=== PATIENT | male | born 1975 | race African-American/Black ===

== ENCOUNTER 2023-08-13 11:49 | Emergency (ER) | payer OTHER, SELFPAY ==
--- NOTE | ~2023-08-13 | XR_ITS ---
EXAMINATION: XR chest 2V DATE: 08/13/2023 12:42 INDICATION: Chest pain. TECHNIQUE: Frontal and lateral views of the chest were obtained. COMPARISON: None. FINDINGS: There is no pneumonia, pleural effusion, or pneumothorax. The heart size is normal. IMPRESSION: 1. No acute cardiopulmonary disease. Reviewed, dictated and finalized at location A.
[2023-08-13 11:55] VITALS: BP 149/117; PULSE 92; RESP 13; TEMP 36.7; O2SAT 100
--- NOTE | 2023-08-13 11:59 | ECG_ITS ---
Measurements Intervals [place] Rate: 86 P: 24 ND: 175 QRS: -12 QRSD: 92 T: -28 QT: 347 Avg RR: 693 QTc: 390 QTcB: 416 QTcF: 392 Interpretive Statements SINUS RHYTHM NONSPECIFIC T-WAVE ABNORMALITY BORDERLINE ECG SEE SCANNED COPY FOR SIGNATURE MTDD
[2023-08-13 12:13] VITALS: BP 164/110; PULSE 86; RESP 18; O2SAT 99
[2023-08-13 12:18] LABS: Basophils Percent Auto 0.5 % (0.2-1.2); Eosinophils Absolute Auto 0.1 K/mm3 (0-0.3); Hematocrit 39.9 % (42.0-52.0); Hemoglobin 13.7 g/dL (14.0-18.0); Immature Granulocyte Absolute 0.02 K/mm3 (0.00-0.031); Immature Granulocyte Percent A 0.3 % (0-0.5); Lymphocytes Absolute Auto 2.92 K/mm3 (0.9-3.2); Lymphocytes Percent Auto 47.9 % (18.3-44.2); Mean Corpuscular HGB Conc 34.3 g/dl (32-36); Mean Corpuscular Hemoglobin 30.4 pg (26-34); Mean Corpuscular Volume 88.7 fl (80-100); Monocytes Absolute Auto 0.5 K/mm3 (0.1-0.6); Neutrophils Absolute Auto 2.5 K/mm3 (1.3-6.7); Neutrophils Percent Auto 41.3 % (45.5-73.1); Platelet Count Result 232 k/mm3 (150-375); Red Cell Distribution Width 12.8 % (11.5-14.5); White Blood Count 6.1 K/mm3 (4.5-10.0)
[2023-08-13] MEDS: ASPIRIN 81 MG CHEWABLE TABLET 324 MG PO (12:20)
[2023-08-13 12:27] LABS: INR 0.9; Prothrombin Time 12.5 Seconds (11.1-14.7)
[2023-08-13 12:29] LABS: Partial Thromboplastin Time 26.3 Seconds (22.3-36.8)
[2023-08-13 12:31] LABS: Alanine Aminotransferase 20 U/L (6-50); Albumin Level 4.7 g/dL (3.5-5.1); Alkaline Phosphatase 94 U/L (38-126); Anion Gap 5 mmol/L (4-12); Aspartate Amino Transferase 26 U/L (17-59); Bilirubin,Total 0.6 mg/dL (0.2-1.3); Blood Urea Nitrogen 16 mg/dL (9-20); Calcium 9.8 mg/dL (8.4-10.2); Carbon Dioxide 24 mmol/L (22-30); Chloride 108 mmol/L (98-107); Estimated CRCL calculation 116 ml/min; Estimated Glomerular Filt Rate > 60; Glucose 114 mg/dL (65-110); Lipase 56 U/L (23-300); Potassium 4.1 mmol/L (3.4-5.0); Sodium 137 mmol/L (137-145)
[2023-08-13 12:42] LABS: Troponin I < 0.012 ng/mL (0.000-0.034)
[2023-08-13 14:37] VITALS: BP 146/92; PULSE 84; RESP 18; O2SAT 100
--- NOTE | 2023-08-13 14:45 | ECG_ITS ---
Measurements Intervals [place] Rate: 76 P: 25 [place]: 194 QRS: -15 QRSD: 98 T: -22 QT: 359 Avg RR: 786 QTc: 389 QTcB: 404 QTcF: 389 Interpretive Statements SINUS RHYTHM NONSPECIFIC ST & T-WAVE ABNORMALITY BORDERLINE ECG SEE SCANNED COPY FOR SIGNATURE MTDD
[2023-08-13 15:23] LABS: Troponin I < 0.012 ng/mL (0.000-0.034)
--- NOTE | 2023-08-13 15:38 | ED.CHESTPAIN ---
HPI - Chest Pain General Chief Complaint: Chest Pain Stated Complaint: CHEST PAIN TODAY Time Seen by Provider: 08/13/23 12:01 Source: patient Mode of arrival: ambulatory Limitations: no limitations History of Present Illness HPI narrative: 48-year-old otherwise healthy here with a complaint of midsternal chest pain started while he was at work. Patient states that it was sharp in nature he denies any shortness of breath, nausea or vomiting. No previous history of CAD. Patient stated pain resolved by the time he came to the ER MD complaint: chest pain Onset (ago): hour(s) (1) Timing of current episode: now resolved Prior episodes: No Onset: during exertion Pain location: substernal Pain radiation: none Quality: tightness Relieving factors: nothing Exacerbating factors: nothing Risk Factors Coronary artery disease risk factors: none Related Data Allergies Allergy/AdvReac Type Severity Reaction Status Date / Time No Known Allergies Allergy Verified 08/13/23 11:59 Review of Systems Review of Systems: All systems reviewed & are unremarkable except as noted in HPI and below Eyes: Eyes: Reports no additional eye complaints ENT: Reports system reviewed and no additional complaints, except as documented Cardiovascular: Cardiovascular: Reports as per HPI Respiratory: Respiratory: Reports no additional respiratory complaints Gastrointestinal: Gastrointestinal: Reports no additional gastrointestinal complaints Musculoskeletal: Musculoskeletal: Reports no additional musculoskeletal complaints Integumentary/Breasts: Skin/Breast: Reports system reviewed and no additional complaints, except as docu Neurologic: Reports system reviewed and no additional complaints, except as documented Exam Narrative: GENERAL: Well-appearing, well-nourished, and in no acute distress. HEAD: Normocephalic, atraumatic. EYES: PERRLA and EOMI. ENT: Nares clear, no rhinorrhea or epistaxis. Mucous membranes moist. NECK: Supple. CHEST: Clear to auscultation. No respiratory distress. HEART: Regular rate and rhythm. No murmur heard. Normal peripheral pulses. ABDOMEN: Soft, nontender, nondistended, normal active bowel sounds. EXTREMITIES: Normal range of motion. No edema. SKIN: Warm, dry, no rash. NEURO: No focal deficits. Alert and oriented x3. PSYCH: Normal mood and affect. Course Course Emergency Course: Patient remained asymptomatic. He states he is feeling comfortable I did inform him about his lab work, EKG and chest x-ray findings recommended him to follow up with primary doctor Vital Signs Vital signs: Vital Signs Temperature 36.7 C 08/13/23 11:55 Pulse Rate 92 08/13/23 11:55 Respiratory Rate 13 08/13/23 11:55 Blood Pressure 149/117 H 08/13/23 11:55 Pulse Oximetry 100 08/13/23 11:55 Oxygen Delivery Room Air 08/13/23 11:55 Temperature 36.7 C 08/13/23 11:55 Pulse Rate 84 08/13/23 14:37 Respiratory Rate 18 08/13/23 14:37 Blood Pressure 146/92 H 08/13/23 14:37 Pulse Oximetry 100 08/13/23 14:37 Oxygen Delivery Room Air 08/13/23 11:55 MDM - Chest Pain Differential Diagnosis Differential diagnosis: Likely unstable angina pectoris, atypical chest pain, st elevation myocardial infarction and chest pain Medical Records Data Attestation: I reviewed the patient's medical records. Lab Data Attestation: I reviewed the patient's lab results. 08/13/23 12:10 08/13/23 12:10 Labs: Lab Results 08/13/23 08/13/23 Range/Units 12:10 14:50 WBC 6.1 (4.5-10.0) K/mm3 RBC 4.50 L (4.6-6.20) M/mm3 Hgb 13.7 L (14.0-18.0) g/dL Hct 39.9 L (42.0-52.0) % MCV 88.7 (80-100) fl MCH 30.4 (26-34) pg MCHC 34.3 (32-36) g/dl RDW 12.8 (11.5-14.5) % Plt Count 232 (150-375) k/mm3 MPV 9.0 (7.4-10.4) fl Immature Gran % (Auto) 0.3 (0-0.5) % Neut % (Auto) 41.3 L (45.5-73.1) % Lymph % (Auto) 47.9 H (18.3-44.2) % [place] % (Auto) 8
[2023-08-13 16:10] VITALS: BP 141/91; PULSE 88; RESP 17; O2SAT 97
== END 2023-08-13 16:11 | disposition home or self-care (01) ==
PROVIDERS: Emergency Provider Family Medicine
DX: R07.2 Precordial pain (principal); I10 Essential (primary) hypertension; R94.31 Abnormal electrocardiogram [ECG] [EKG]
CPT/HCPCS: 36415; 71046; 80053; 83690; 84484; 85025; 85610; 85730; 93005; 99284; A9270